=== PATIENT | male | born 1995 ===

== ENCOUNTER 2017-01-26 07:12 | Emergency (ER) | payer BC ==
[2017-01-26 07:15] VITALS: BMI 27.1
[2017-01-26 07:16] VITALS: RESP 18; TEMP 98.1; O2SAT 99
--- NOTE | 2017-01-26 07:35 | C.PDOC ---
History Of Present Illness 21 y/o male presents to ED with insomnia and requests medication to be able to sleep. Patient drinks 1 cup of coffee a day and exercises after work as a normal daily routine. Patient denies any fever, chills, headache or dizziness. No other complaints at this time Time Seen by Provider: 01/26/17 07:30 Chief Complaint (Nursing): Medical Clearance History Per: Patient History/Exam Limitations: no limitations Onset/Duration Of Symptoms: Days Current Symptoms Are (Timing): Still Present Past Medical History Reviewed: Historical Data, Nursing Documentation, Vital Signs Vital Signs: Last Vital Signs Temp 98.1 F 01/26/17 07:16 Pulse 81 01/26/17 08:01 Resp 18 01/26/17 08:01 BP 123/58 L 01/26/17 08:01 Pulse Ox 99 01/26/17 08:01 - Medical History PMH: No Chronic Diseases Surgical History: No Surg Hx Family History: States: Unknown Family Hx - Social History Hx Alcohol Use: Yes Hx Substance Use: No - Immunization History Hx Tetanus Toxoid Vaccination: No Hx Influenza Vaccination: No Hx Pneumococcal Vaccination: No Review Of Systems Except As Marked, All Systems Reviewed And Found Negative. Constitutional: Negative for: Fever, Chills Respiratory: Negative for: Cough Gastrointestinal: Negative for: Nausea, Vomiting, Diarrhea Skin: Negative for: Rash Neurological: Negative for: Weakness, Headache, Dizziness Psych: Negative for: Anxiety Physical Exam - Physical Exam Appears: Non-toxic, No Acute Distress Skin: Normal Color Head: Atraumatic, Normacephalic Oral Mucosa: Moist Neck: Normal ROM Cardiovascular: Rhythm Regular Respiratory: No Rales, No Rhonchi, No Wheezing Gastrointestinal/Abdominal: Normal Exam Extremity: Normal ROM Neurological/Psych: Oriented x3, Normal Speech, Normal Cognition ED Course And Treatment O2 Sat by Pulse Oximetry: 99 (Room air) Pulse Ox Interpretation: Normal Progress Note: In no distress. discharged in stable condition to follow up with clinic Reassessment Condition: Unchanged Medical Decision Making Medical Decision Making: Medication for insomnia not available, Patient will be discharged and instructed to see PMD if symptoms continue. Disposition - Disposition [facility]Outside[facility] Disposition: HOME/ ROUTINE Disposition Time: 08:25 Condition: GOOD Additional Instructions: Follow up with clinic for further evaluation Return to ED if any increase symptoms Instructions: Insomnia (ED) Forms: Work Excuse - Clinical Impression Clinical Impression: Insomnia - PA / PROFESSIONAL ADVISOR / Resident Statement MD/DO has reviewed & agrees with the documentation as recorded. - Scribe Statement The provider has reviewed the documentation as recorded by the Jeffibhussein Helton All medical record entries made by the Sonal were at my direction and personally dictated by me. I have reviewed the chart and agree that the record accurately reflects my personal performance of the history, physical exam, medical decision making, and the department course for this patient. I have also personally directed, reviewed, and agree with the discharge instructions and disposition.
[2017-01-26 08:02] VITALS: BP 123/58; PULSE 81
== END 2017-01-26 08:02 | disposition home or self-care (01) ==
LOC: C.ER 07:12
DX: G47.00 Insomnia, unspecified (principal)